=== PATIENT | female | born 1955 | race Caucasian/White ===

== ENCOUNTER 2018-03-18 11:58 | Emergency (ER) | payer BC ==
[2018-03-18] MEDS ORDERED: Ketorolac INJ* 60 MG/2 ML VIAL IM ONE (13:05)
--- NOTE | 2018-03-18 13:05 | UC ---
Back Pain HPI - HPI Summary HPI Summary: 62 yo female presents with cold symptoms. She tells me that last night she develops body aches, sinus congestion, and felt hot/cold - she took some OTC cold medication and felt better. Last night her lower back began to hurt and this has persisted into today. She denies injury. She denies fever, chills, SOB , chest pain, abdominal pain, n/v, dysuria, or vaginal discharge. No radiation of pain. No numbness or tingling. No saddle anesthesia or loss of bowel/bladder control. She took a cold medicine last night that had tylenol in it that did not help her back. 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 - History of Current Complaint Chief Complaint: UCBackPain Stated Complaint: BACK PAIN Time Seen by Provider: 03/18/18 12:42 Hx Obtained From: Patient Onset/Duration: Sudden Onset Timing: Constant Severity Initially: Moderate Severity Currently: Moderate Pain Intensity: 7 Pain Scale Used: 0-10 Numeric - Allergies/Home Medications Allergies/Adverse Reactions: Allergies Allergy/AdvReac Type Severity Reaction Status Date / Time No Known Allergies Allergy Verified 03/18/18 12:39 PMH/Surg Hx/FS Hx/Imm Hx Endocrine History: Dyslipidemia Psychological History: Anxiety, Depression - Surgical History Surgical History: Yes Surgery Procedure, Year, and Place: HYSTERECTOMY COMPL 7 YEARS AGO DUE TO TUMOR AND BURSTED RT OVARY; TUMOR WAS BENIGN; 2010 [facility]; 2011 TUMMY TUCK AND BREAST LIFT AND REDUCTION AT [facility]; LIPOSUCTION AROUND ABDOMEN AREA ; 20 YEARS AGO. - Social History Lives: With Family Alcohol Use: Rare Substance Use Type: None Smoking Status (MU): Never Smoked Tobacco Review of Systems All Other Systems Reviewed And Are Negative: Yes Constitutional: Positive: Negative Skin: Positive: Negative Eyes: Positive: Negative ENT: Positive: Nasal Discharge Respiratory: Positive: Negative Cardiovascular: Positive: Negative Gastrointestinal: Positive: Negative Genitourinary: Positive: Negative Motor: Positive: Negative Musculoskeletal: Positive: Other: - Lower back pain Neurological: Positive: Negative Psychological: Positive: Negative Physical Exam - Summary Physical Exam Summary: GENERAL: NAD. WDWN. No pain distress. SKIN: No rashes, sores, lesions, or open wounds. HEENT: Head: AT/NC Eyes: EOM intact. Conjunctiva clear without inflammation or discharge. Ears: Hearing grossly normal. TMs intact, no bulging, erythema, or edema. Nose: Nasal mucosa pink and moist. NTTP maxillary and frontal sinus. Throat: Posterior oropharynx without exudates, erythema, or tonsillar enlargement. Uvula midline. NECK: Supple. Nontender. No lymphadenopathy. CHEST: CTAB. No r/r/w. No accessory muscle use. Breathing comfortably and in no distress. CV: RRR. Without m/r/g. Pulses intact. Cap refill <2seconds MSK: NTTP over lumbar paraspinal muscles or SI joints. Pain with flexion and extension of spine. Negative SLR b/l. Negative JERRY b/l. Strength 5/5 B/L LEs including dorsiflexion and plantar flexion. FROM B/L LEs. No edema. NEURO: Alert. PSYCH: Age appropriate behavior. Triage Information Reviewed: Yes Vital Signs: Initial Vital Signs Temp 98.5 F 03/18/18 12:34 Pulse 79 03/18/18 12:34 Resp 18 03/18/18 12:34 BP 128/85 03/18/18 12:34 Pulse Ox 97 03/18/18 12:34 Laboratory Tests 03/18/18 12:52 POC Urine Color Light yellow POC Urine Clarity Clear POC Urine pH 5.5 POC Ur Specif [place] <= 1.005 L POC Urine Protein Negative POC Ur Glucose (UA) Negative POC Urine Ketones Negative POC Urine Blood Trace-lysed A POC Urine Nitrite Negative POC Urine Bilirubin Negative POC Urine Urobilinogen 0.2 POC U Leukocyte Esteras Negative Vital Signs Reviewed: Yes Back Pain Course/Dx - Course Course Of Treatment: XR: IMPRESSION: MODERATE TO SEVERE DEGENERATIVE DISC DISEASE AT THE L4-L5 LEVEL. POC Flu negative. Pt was given toradol in the clinic with slight improvement of her back discomfort. I suspect she has a viral illness that is exacerbating her lower back pain. Her exam is WNL, she is well appearing and afebrile, her symptoms began <24 hours ago - therefore advised to rest and apply heat to her lower back. May take tylenol/ibuprofen for discomfort. F/u with PCP if symptoms do not improve. - Differential Dx/Diagnosis Provider Diagnosis: Viral syndrome, Low back pain Discharge - Sign-Out/Discharge Documenting (check all that apply): Patient Departure All imaging exams completed and their final reports reviewed: Yes - Discharge Plan Condition: Stable Disposition: HOME Patient Education Materials: Low Back Strain (ED), Viral Syndrome (ED) Referrals: Lio Bradford MD [Primary Care Provider] - 3 Days Additional Instructions: If you develop a fever, shortness of breath, chest pain, new or worsening symptoms - please call your PCP or go to the ED. Your exam, urine, and X-Rays today were all normal. If your symptoms do not improve with rest and tylenol/ibuprofen in a few days - please be rechecked - Billing Disposition and Condition Condition: STABLE Disposition: Home
[2018-03-18 14:06] LABS: Influenza A Molecular NEGATIVE (Negative); Influenza B Molecular NEGATIVE (Negative)
[2018-03-18 14:39] VITALS: BP 134/78
== END 2018-03-18 14:40 | disposition home or self-care (01) ==
LOC: UCEAST 11:58
DX: B34.9 Viral infection, unspecified (principal); M54.5 Low back pain
CPT/HCPCS: 72110; 81003; 99211; G0463; J1885